=== PATIENT | female | born 1975 | race Caucasian/White ===

== ENCOUNTER 2016-11-07 21:49 | Emergency (ER) | payer SELFPAY ==
[2016-11-07 21:55] VITALS: BP 141/93; PULSE 75; TEMP 98.1; BMI 24.1
--- NOTE | 2016-11-07 22:53 | PDOC ---
History of Present Illness <Rufus Beck - Last Filed: 11/08/16 00:11> - General History Source: Patient Exam Limitations: No Limitations - History of Present Illness Initial Comments: 11/07/16 23:08 Patient is a 41 year old female with a significant past medical history of migraines who presents to the ED with complaints of left foot pain 1.5 hours before ED arrival. Patient reports hitting her left 5th digit toe on a folding table while at home with immediate pain on the 5th digit. She reports being unable to bear weight on left foot immediately after incident but was able to apply minor pressure after sometime. Patient denies taking any medication for pain after the initial accident/. Denies loss of consciousness. Denies fever, chills. Denies any other symptoms. Allergies: None Social history: No smoking. No alcohol. No illicit drugs. Surgical history: None PMD: None <Tawanda Quintana - Last Filed: 11/08/16 00:20> - General Chief Complaint: Injury Stated Complaint: FOOT INJURY Time Seen by Provider: 11/07/16 22:52 Past History - Family Disease History Family Disease History: Other: Sister (migraines) - Suicide/Smoking/Psychosocial Hx Smoking Status: No Smoking History: Never smoked Have you smoked in the past 12 months: No Number of Cigarettes Smoked Daily: 0 Information on smoking cessation initiated: No Hx Alcohol Use: No Drug/Substance Use Hx: No <Rufus Beck - Last Filed: 11/08/16 00:11> <Tawanda Quintana - Last Filed: 11/08/16 00:20> - Past Medical History Allergies/Adverse Reactions: Allergies Allergy/AdvReac Type Severity Reaction Status Date / Time No Known Allergies Allergy Verified 12/12/11 18:46 Home Medications: Ambulatory Orders Ondansetron [Zofran *Odt*] 8 mg SL TID #21 od.tablet 11/08/16 Oxycodone HCl/Acetaminophen [Percocet 5-325 mg Tablet] 1 - 2 tab PO Q4H #20 tablet MDD 6 11/08/16 Review of Systems - Review of Systems Able to Perform ROS?: Yes Comments:: 11/07/16 23:08 GENERAL/CONSTITUTIONAL: No fever or chills. No weakness. HEAD, EYES, EARS, NOSE AND THROAT: No change in vision. No ear pain or discharge. No sore throat. CARDIOVASCULAR: No chest pain or shortness of breath. RESPIRATORY: No cough, wheezing, or hemoptysis. GASTROINTESTINAL: No nausea, vomiting, diarrhea or constipation. GENITOURINARY: No dysuria, frequency, or change in urination. MUSCULOSKELETAL: +Left foot pain. No joint or muscle swelling. No neck or back pain. SKIN: No rash NEUROLOGIC: No headache, vertigo, loss of consciousness, or change in strength/ sensation. ENDOCRINE: No increased thirst. No abnormal weight change. HEMATOLOGIC/LYMPHATIC: No anemia, easy bleeding, or history of blood clots. ALLERGIC/IMMUNOLOGIC: No hives or skin allergy. All Other Systems: Reviewed and Negative <Tawanda Quintana - Last Filed: 11/08/16 00:20> *Physical Exam - Vital Signs Last Vital Signs Temp Pulse Resp BP Pulse Ox 98.1 F 75 19 141/93 97 11/07/16 21:53 11/07/16 21:53 11/07/16 21:53 11/07/16 21:53 11/07/16 21:53 <Rufus Beck - Last Filed: 11/08/16 00:11> - Vital Signs Last Vital Signs Temp Pulse Resp BP Pulse Ox 98.1 F 75 19 141/93 97 11/07/16 21:53 11/07/16 21:53 11/07/16 21:53 11/07/16 21:53 11/07/16 21:53 - Physical Exam Comments: 11/07/16 23:08 GENERAL: Awake, alert, and fully oriented, in no acute distress HEAD: No signs of trauma EYES: PERRLA, EOMI, sclera anicteric, conjunctiva clear ENT: Auricles normal inspection, hearing grossly normal, nares patent, oropharynx clear without exudates. Moist mucosa NECK: Normal ROM, supple, no lymphadenopathy, JVD, or masses LUNGS: Breath sounds equal, clear to auscultation bilaterally. No wheezes, and no crackles HEART: Regular rate and rhythm, normal S1 and S2, no murmurs, rubs or gallops ABDOMEN: Soft, nontender, normoactive bowel sounds. No guarding, no rebound. No masses EXTREMITIES: +Left little toe deformity. Normal range of motion, no edema. No clubbing or cyanosis. No cords, erythema, or tenderness NEUROLOGICAL: Cranial nerves II through XII grossly intact. Normal speech, SKIN: Warm, Dry, normal turgor, no rashes or lesions noted. <aMrianoTawanda - Last Filed: 11/08/16 00:20> Medical Decision Making - Medical Decision Making 11/08/16 00:20 X Ray results indicate fracture on left little toe. <MarianoTawanda - Last Filed: 11/08/16 00:20> *DC/Admit/Observation/Transfer - Discharge Dispostion Admit: No - Attestations Physician Attestion: 11/07/16 22:53 I, Dr. Rufus Beck, attest that this document has been prepared under my direction and personally reviewed by me in its entirety. I further attest, that it accurately reflects all work, treatment, procedures and medical decision -making performed by me. <Rufus Beck - Last Filed: 11/08/16 00:11> - Attestations Scribe Attestion: 11/07/16 23:08 Documentation prepared by Tawanda Quintana, acting as medical laboratory manager for Rufus Beck MD/DO. <MarianoTawanda - Last Filed: 11/08/16 00:20> Diagnosis at time of Disposition: Fracture, phalanx, foot Qualifiers: Encounter type: initial encounter Toe: lesser toe Fracture type: closed Phalanx : middle Fracture alignment: displaced Laterality: left Qualified Code(s): S92.522A - Displaced fracture of medial phalanx of left lesser toe(s), initial encounter for closed fracture - Discharge Dispostion Disposition: HOME - Prescriptions Prescriptions: Oxycodone HCl/Acetaminophen [Percocet 5-325 mg Tablet] 1 - 2 tab PO Q4H #20 tablet MDD 6 Ondansetron [Zofran *Odt*] 8 mg SL TID #21 od.tablet - Referrals Referrals: Callum Nash MD [Staff Physician] - - Patient Instructions Printed Discharge Instructions: DI for Toe Fracture Additional Instructions: Wear the wooden shoe until you do not need it any more. Percocet is for pain, Zofran is for upset stomach from the pain medicine
[2016-11-07] MEDS ORDERED: ONDANSETRON *ODT* 4 MG TABLET SL ONE (22:56)
[2016-11-07] MEDS ORDERED: ONDANSETRON *ODT* 4 MG TABLET ONE (23:07)
== END 2016-11-08 00:42 | disposition home or self-care (01) ==
LOC: JERFT 21:49 → JER 21:49
DX: S92.522A Displaced fracture of middle phalanx of left lesser toe(s), initial encounter for closed fracture (principal); W22.03XA Walked into furniture, initial encounter; Y93.89 Activity, other specified; Y92.038 Other place in apartment as the place of occurrence of the external cause
CPT/HCPCS: 73630-TC-LT; 99281-25

== ENCOUNTER 2017-09-18 01:38 | Emergency (ER) | payer OTHER ==
[2017-09-18 02:23] VITALS: BP 123/80; PULSE 70; TEMP 97.9; BMI 24.5
--- NOTE | 2017-09-18 02:37 | PDOC ---
History of Present Illness - General History Source: Patient - History of Present Illness Initial Comments: 09/18/17 04:14 42-year-old female complaining of laceration to the right side of forehead reports that she slipped and fell and hit her head while getting out of the tub. Denies LOC, nausea, vomiting, dizziness. Patient reports that she has been having migraines for the last 6 days currently on Excedrin Migraine. Patient reports headache worsen after the head injury. <Mercy Mondragon - Last Filed: 09/18/17 04:14> <Karlie Boyer - Last Filed: 09/18/17 14:10> - General Chief Complaint: Injury Stated Complaint: FALL/HEAD INJURY Time Seen by Provider: 09/18/17 02:27 Past History - Family Disease History Family Disease History: Other: Sister (migraines) - Suicide/Smoking/Psychosocial Hx Smoking Status: No Smoking History: Never smoked Have you smoked in the past 12 months: No Number of Cigarettes Smoked Daily: 0 Information on smoking cessation initiated: No Hx Alcohol Use: No Drug/Substance Use Hx: No <Mercy Mondragon - Last Filed: 09/18/17 04:14> <Karlie Boyer - Last Filed: 09/18/17 14:10> - Past Medical History Allergies/Adverse Reactions: Allergies Allergy/AdvReac Type Severity Reaction Status Date / Time No Known Allergies Allergy Verified 09/18/17 02:22 Home Medications: Ambulatory Orders Ondansetron [Zofran *Odt*] 8 mg SL TID #21 od.tablet 11/08/16 Oxycodone HCl/Acetaminophen [Percocet 5-325 mg Tablet] 1 - 2 tab PO Q4H #20 tablet MDD 6 11/08/16 Review of Systems - Review of Systems Able to Perform ROS?: Yes Is the patient limited Maltese proficient: No Constitutional: No: Symptoms Reported, See HPI, Chills, Diaphoresis, Fever, Loss of Appetite, Malaise, Night Sweats, Weakness, Weight Stable, Unintentional Wgt. Loss, Unexplained wgt Loss, Other Integumentary: Yes: Other Neurological: Yes: Headache. No: Symptoms reported, See HPI, Numbness, Paresthesia, Pre-Existing Deficit, Seizure, Tingling, Tremors, Weakness, Unsteady Gait, Ataxia, Dizziness, Other <Mercy Mondragon - Last Filed: 09/18/17 04:14> *Physical Exam - Vital Signs Last Vital Signs Temp Pulse Resp BP Pulse Ox 97.9 F 70 20 123/80 100 09/18/17 01:45 09/18/17 01:45 09/18/17 01:45 09/18/17 01:45 09/18/17 01:45 - Physical Exam General Appearance: Yes: Appropriately Dressed (laceration) HEENT: positive: Other (approximately a 2.5 cm linear vertical rash to right side of forehead) Neurologic: positive: quality assurance specialist II-XII NML intact, Fully Oriented, Alert, Normal Mood/ Affect <Mercy Mondragon - Last Filed: 09/18/17 04:14> - Vital Signs Last Vital Signs Temp Pulse Resp BP Pulse Ox 97.9 F 70 20 123/80 100 09/18/17 01:45 09/18/17 01:45 09/18/17 01:45 09/18/17 01:45 09/18/17 01:45 <Karlie Boyer - Last Filed: 09/18/17 14:10> Procedures - Laceration/Wound Repair Right Anterior Face Wound Length: 2.6 to 5.0 cm Wound Explored: clean Wound's Depth, Shape: superficial Irrigated w/ Saline: Yes Anesthesia: 1% Lidocaine Wound Debrided: minimal Wound Repaired With: Sutures Suture Size/Type: 6:0 Number of Sutures: 5 Layer Closure: Yes <Karlie Boyer - Last Filed: 09/18/17 14:10> ED Treatment Course - LABORATORY CBC & Chemistry Diagram: 09/18/17 03:00 09/18/17 03:00 <Mercy Mondragon - Last Filed: 09/18/17 04:14> - LABORATORY CBC & Chemistry Diagram: 09/18/17 03:00 09/18/17 03:00 - ADDITIONAL ORDERS Additional order review: Laboratory Results 09/18/17 09/18/17 03:00 03:00 Sodium 142 Potassium 4.1 Chloride 104 Carbon Dioxide 33 H Anion Gap 5 L BUN 16 Creatinine 0.6 Creat Clearance w eGFR > 60 Random Glucose 97 Calcium 8.9 Serum , Qual Negative 09/18/17 03:00 RBC 4.20 MCV 84.4 MCHC 32.9 RDW 14.1 MPV 8.6 Neutrophils % 59.0 Lymphocytes % 31.2 Monocytes % 6.2 Eosinophils % 3.2 Basophils % 0.4 - Medications Given in the ED: ED Medications Discontinued Medications Generic Name Dose Route Start Last Admin Trade Name Mike PRN Reason Stop Dose Admin Diphenhydramine HCl 25 mg 09/18/17 02:38 09/18/17 03:16 Benadryl Injection - IVPB 09/18/17 02:39 25 mg ONCE ONE Administration Metoclopramide HCl 10 mg 09/18/17 02:38 09/18/17 03:17 Reglan Injection - IVPB 09/18/17 02:39 10 mg ONCE ONE Administration Sodium Chloride 1,000 ml 09/18/17 02:38 09/18/17 03:17 Normal Saline - IV 09/18/17 02:39 1,000 ml ONCE ONE Administration Tetanus/Diphtheria Toxoids Adsorbed 0.5 ml 09/18/17 02:38 09/18/17 03:16 Decavac IM 09/18/17 02:39 0.5 ml .ONCE ONE Administration <Karlie Boyer - Last Filed: 09/18/17 14:10> *DC/Admit/Observation/Transfer <Mercy Mondragon - Last Filed: 09/18/17 04:14> <Karlie Boyer - Last Filed: 09/18/17 14:10> Diagnosis at time of Disposition: Forehead laceration Qualifiers: Encounter type: initial encounter Qualified Code(s): S01.81XA - Laceration without foreign body of other part of head, initial encounter Head trauma Qualifiers: Encounter type: initial encounter Qualified Code(s): S09.90XA - Unspecified injury of head, initial encounter Migraine headache with aura Qualifiers: Status migrainosus presence: without status migrainosus Intractability: not intractable Qualified Code(s): G43.109 - Migraine with aura, not intractable, without status migrainosus - Discharge Dispostion Disposition: HOME - Referrals Referrals: Giancarlo Cyr MD, MD [Primary Care Provider] - - Patient Instructions Printed Discharge Instructions: Laceration Repair, DI for Closed Head Injury Additional Instructions: Drink plenty of fluids. rest and reax as much as possible. Follow-up with the neurologist as soon as possible. Take ibuprofen every 6 hours as needed for pain return to the emergency room in 5-7 days for your sutures to be removed keep wound clean and dry. - Post Discharge Activity Forms/Work/School Notes: Back to Work
[2017-09-18] MEDS ORDERED: TETANUS AND DIPHTHERIA TOXOID 0.5 ML DISP.SYRIN IM ONE (02:38)
[2017-09-18] MEDS ORDERED: METOCLOPRAMIDE HCL INJECTION 10 MG/2 ML VIAL IVPB ONE (02:38)
[2017-09-18] MEDS ORDERED: SODIUM CHLORIDE 0.9% 500 ML INFUS.BAG IV ONE (02:38)
[2017-09-18] MEDS ORDERED: METOCLOPRAMIDE HCL INJECTION 10 MG/2 ML VIAL ONE (03:04)
[2017-09-18 03:16] LABS: BASO % 0.4 % (0-2.0); EOS % 3.2 % (0-4.5); HEMATOCRIT 35.4 % (32.4-45.2); HEMOGLOBIN 11.7 GM/dL (10.7-15.3); LYMPH % 31.2 % (8-40); MCH 27.8 pg (25.7-33.7); MCHC 32.9 g/dl (32.0-36.0); MEAN CELL VOLUME 84.4 fl (80-96); MEAN PLT VOLUME 8.6 fl (7.5-11.1); MONO % 6.2 % (3.8-10.2); PLATELET COUNT 263 K/MM3 (134-434); RDW 14.1 % (11.6-15.6); WHITE BLOOD COUNT 7.9 K/mm3 (4.0-10.0)
[2017-09-18 03:32] LABS: ANION GAP 5 (8-16); BLOOD UREA NITROGEN 16 mg/dL (7-18); CALCIUM 8.9 mg/dL (8.5-10.1); CHLORIDE 104 mmol/L (98-107); CO2 33 mmol/L (21-32); CREATININE 0.6 mg/dL (0.55-1.02); GLUCOSE,RANDOM 97 mg/dL (74-106); POTASSIUM 4.1 mmol/L (3.5-5.1); SODIUM 142 mmol/L (136-145)
--- NOTE | 2017-09-18 03:37 | PDOC ---
*Physical Exam - Vital Signs Last Vital Signs Temp Pulse Resp BP Pulse Ox 97.9 F 70 20 123/80 100 09/18/17 01:45 09/18/17 01:45 09/18/17 01:45 09/18/17 01:45 09/18/17 01:45 ED Treatment Course - LABORATORY CBC & Chemistry Diagram: 09/18/17 03:00 09/18/17 03:00 - ADDITIONAL ORDERS Additional order review: 09/18/17 03:00 RBC 4.20 MCV 84.4 MCHC 32.9 RDW 14.1 MPV 8.6 Neutrophils % 59.0 Lymphocytes % 31.2 Monocytes % 6.2 Eosinophils % 3.2 Basophils % 0.4 - Medications Given in the ED: ED Medications Discontinued Medications Generic Name Dose Route Start Last Admin Trade Name Mike PRN Reason Stop Dose Admin Diphenhydramine HCl 25 mg 09/18/17 02:38 09/18/17 03:16 Benadryl Injection - IVPB 09/18/17 02:39 25 mg ONCE ONE Administration Metoclopramide HCl 10 mg 09/18/17 02:38 09/18/17 03:17 Reglan Injection - IVPB 09/18/17 02:39 10 mg ONCE ONE Administration Sodium Chloride 1,000 ml 09/18/17 02:38 09/18/17 03:17 Normal Saline - IV 09/18/17 02:39 1,000 ml ONCE ONE Administration Tetanus/Diphtheria Toxoids Adsorbed 0.5 ml 09/18/17 02:38 09/18/17 03:16 Decavac IM 09/18/17 02:39 0.5 ml .ONCE ONE Administration Medical Decision Making - Medical Decision Making 09/18/17 03:37 agree with care from AMILCAR Mondragon *DC/Admit/Observation/Transfer Diagnosis at time of Disposition: Forehead laceration, Head trauma, Migraine headache with aura - Discharge Dispostion Disposition: HOME - Referrals Referrals: Giancarlo Cyr MD, [Primary Care Provider] - - Patient Instructions Printed Discharge Instructions: Laceration Repair, DI for Closed Head Injury Additional Instructions: Drink plenty of fluids. rest and reax as much as possible. Follow-up with the neurologist as soon as possible. Take ibuprofen every 6 hours as needed for pain return to the emergency room in 5-7 days for your sutures to be removed keep wound clean and dry. - Post Discharge Activity Forms/Work/School Notes: Back to Work
== END 2017-09-18 04:54 | disposition home or self-care (01) ==
LOC: JER 01:38
PROC: 0HQ1XZZ Repair Face Skin, External Approach (ICD-10-PCS; principal; 2017-09-18)
DX: S01.81XA Laceration without foreign body of other part of head, initial encounter (principal); W18.2XXA Fall in (into) shower or empty bathtub, initial encounter; Y93.89 Activity, other specified; Y92.002 Bathroom of unspecified non-institutional (private) residence as the place of occurrence of the external cause
CPT/HCPCS: 36415; 80048; 84703; 85025; 99283-25

== ENCOUNTER 2019-11-16 11:05 | Emergency (ER) | payer OTHER ==
[2019-11-16 11:10] VITALS: BP 125/82; PULSE 74; TEMP 98.7; BMI 26.2
[2019-11-16] MEDS ORDERED: ACETAMINOPHEN 1000 MG/100 ML VIAL (NON FORMULARY) IVPB ONE (11:31)
[2019-11-16] MEDS ORDERED: diazePAM 5 MG TABLET PO ONE (11:31)
[2019-11-16] MEDS ORDERED: diazePAM 5 MG TABLET ONE (11:35)
[2019-11-16] MEDS ORDERED: ACETAMINOPHEN INJECTION 100 ML IVPB ONE (11:41)
--- NOTE | 2019-11-16 12:54 | PDOC ---
History of Present Illness - General Chief Complaint: Back Pain Stated Complaint: RT LEG/BACK PAIN Time Seen by Provider: 11/16/19 11:23 - History of Present Illness Initial Comments: 11/16/19 12:51 44-year-old female denies comorbidities history of bilateral tubal ligation denies chance of presents for lower back pain x2 days with posterior lateral right leg radicular symptoms. No systemic symptoms no loss of bowel bladder function or saddle paresthesias she took 3 Aleve this morning with minimal help Past History - Medical History Allergies/Adverse Reactions: Allergies Allergy/AdvReac Type Severity Reaction Status Date / Time No Known Allergies Allergy Verified 11/16/19 11:07 Home Medications: Ambulatory Orders Cyclobenzaprine HCl [Flexeril 10 mg] 10 mg PO HS PRN #10 tablet 11/16/19 Methylprednisolone [Medrol Dose Claudio] 4 mg PO ASDIR #21 tablet 11/16/19 COPD: No - Reproductive History Is Patient Now?: No - Immunization History Immunization Up to Date: No - Psycho-Social/Smoking History Smoking Status: No Smoking History: Never smoked Have you smoked in the past 12 months: No Number of Cigarettes Smoked Daily: 0 - Substance Abuse Hx (Audit-C & DAST Scrn) How often the patient has a drink containing alcohol: Never Score: In Men: 4 or > Positive; In Women: 3 or > Positive: 0 Screen Result (Pos requires Nsg. Audit-10AR): Negative In the last yr the pt used illegal drug/Rx for NonMed reason: No Score: Yes response is considered Positive: 0 Screen Result (Positive result requires Nsg. DAST-10): Negative Review of Systems - Review of Systems Constitutional: No: Fever Musculoskeletal: Yes: Back Pain Neurological: Yes: See HPI. No: Paresthesia, Tingling, Weakness *Physical Exam - Vital Signs Last Vital Signs Temp Pulse Resp BP Pulse Ox 98.7 F 74 20 125/82 99 11/16/19 11:08 11/16/19 11:08 11/16/19 11:08 11/16/19 11:08 11/16/19 11:08 - Physical Exam 11/16/19 12:52 Lumbar spine skin color temperature normal range of motion is slightly decreased. No midline tenderness. Moderate bilateral paralumbar musculature spasm and tenderness 5 out of 5 strength bilateral lower extremities without gross sensorimotor deficits thighs and calves are soft and nontender neurovascular intact ED Treatment Course - RADIOLOGY Radiology Studies Ordered: Category Date Time Status SPINE-LUMBAR ONLY [RAD] Stat Radiology 11/16/19 12:19 Taken - Medications Given in the ED: ED Medications Discontinued Medications Generic Name Dose Route Start Last Admin Trade Name Freq PRN Reason Stop Dose Admin Acetaminophen 1,000 mg 11/16/19 11:31 11/16/19 11:37 Ofirmev Injection - IVPB 11/16/19 11:32 1,000 mg ONCE ONE Administration Diazepam 5 mg 11/16/19 11:31 11/16/19 11:37 Valium - PO 11/16/19 11:32 5 mg ONCE ONE Administration Medical Decision Making - Medical Decision Making 11/16/19 12:52 Minimal relief with Valium and IV Tylenol Medrol Dosepak and Flexeril at home follow-up with neurosurgery I have reviewed the pathophysiology with the patient. They are in agreement with the treatment plan all questions were answered to their satisfaction. Understanding for follow-up without fail was also conveyed to the patient. Again they are in agreement. Patient requested x-rays which I did normal lumbar spine lordotic curve normal disc spaces no destructive process she then requested a ultrasound of her kidneys she has no urinary symptoms I do not see the need for an emergent ultrasound I will have patient follow-up with neurosurgery She is in agreement Discharge - Discharge Information Problems reviewed: Yes Clinical Impression/Diagnosis: Lumbar radiculopathy Condition: Stable Disposition: HOME - Admission No - Additional Discharge Information Prescriptions: Cyclobenzaprine HCl [Flexeril 10 mg] 10 mg PO HS PRN #10 tablet PRN Reason: Muscle Spasms Methylprednisolone [Medrol Dose Claudio] 4 mg PO ASDIR #21 tablet - Follow up/Referral Referrals: Ko Finn MD, FAANS [Staff Physician] - - Patient Discharge Instructions Additional Instructions: Please start the Medrol Dosepak as and take it as directed. Return to the emergency room for worsening symptoms at any time. Flexeril is 1 tablet before bedtime will make you sleepy. Do not take any anti-inflammatories such as Advil Motrin Aleve or ibuprofen while on the Medrol Dosepak. You may take [id number] Tylenol starting this evening after 6 PM you were given a dose of Tylenol in the emergency room. Return to the emergency room for worsening symptoms at any time and without fail follow-up with neurosurgery in 1 to 2 days for further evaluation and treatment options. - Post Discharge Activity
== END 2019-11-16 13:04 | disposition home or self-care (01) ==
LOC: JERFT 11:05
PROC: 3E0333Z Introduction of Anti-inflammatory into Peripheral Vein, Percutaneous Approach (ICD-10-PCS; principal; 2019-11-16)
DX: M54.16 Radiculopathy, lumbar region (principal)
CPT/HCPCS: 72100-TC-FY; 99284-25; J0131

== ENCOUNTER 2021-02-14 11:09 | Emergency (ER) | payer OTHER ==
[2021-02-14 12:01] VITALS: BP 123/57; PULSE 78; TEMP 98; BMI 25.8
[2021-02-14] MEDS ORDERED: IBUPROFEN 400 MG TABLET (FP) PO ONE ×2 (13:11→13:18)
== END 2021-02-14 13:58 | disposition home or self-care (01) ==
LOC: JERFT 11:09
DX: S16.1XXA Strain of muscle, fascia and tendon at neck level, initial encounter (principal); S39.012A Strain of muscle, fascia and tendon of lower back, initial encounter; V49.40XA Driver injured in collision with unspecified motor vehicles in traffic accident, initial encounter
CPT/HCPCS: 99283-25

== ENCOUNTER 2021-04-15 17:01 | Emergency (ER) | payer OTHER ==
[2021-04-15 17:08] VITALS: PULSE 79; TEMP 97.8; BMI 25.8
[2021-04-15 17:09] VITALS: BP 124/80
[2021-04-15] MEDS ORDERED: KETOROLAC TROMETHAMINE 30 MG/1 ML VIAL IM ONE (18:13)
[2021-04-15] MEDS ORDERED: diazePAM 5 MG TABLET PO ONE (18:13)
[2021-04-15] MEDS ORDERED: KETOROLAC TROMETHAMINE 30 MG/1 ML VIAL ONE (18:15)
[2021-04-15] MEDS ORDERED: diazePAM 5 MG TABLET ONE (18:19)
== END 2021-04-15 20:00 | disposition home or self-care (01) ==
LOC: JERFT 17:01
PROC: 3E023GC Introduction of Other Therapeutic Substance into Muscle, Percutaneous Approach (ICD-10-PCS; principal; 2021-04-15)
DX: M54.16 Radiculopathy, lumbar region (principal)
CPT/HCPCS: 72100-TC-FY; 99284-25

== ENCOUNTER 2021-07-28 15:38 | Inpatient (IN) | payer OTHER ==
[2021-07-28 15:59] VITALS: BMI 25.8
[2021-07-28] MEDS ORDERED: SODIUM CHLORIDE 1,000 ML IV STA (17:46)
[2021-07-28] MEDS ORDERED: morphine CARPU-JECT 4 MG/1 ML DISP.SYRIN IVPUSH ONE (17:46)
[2021-07-28] MEDS ORDERED: ONDANSETRON 4 MG/2 ML VIAL IVPUSH ONE (17:46)
[2021-07-28] MEDS ORDERED: ONDANSETRON 4 MG/2 ML VIAL ONE (19:27)
[2021-07-28] MEDS ORDERED: morphine SULFATE 4 MG/ML VIAL ONE (19:27)
[2021-07-28 19:38] LABS: BASO % 0.6 % (0-2.0); EOS % 0.4 % (0-4.5); HEMATOCRIT 38.8 % (32.4-45.2); HEMOGLOBIN 12.7 GM/dL (10.7-15.3); LYMPH % 18.6 % (8-40); MCH 26.8 pg (25.7-33.7); MCHC 32.9 g/dl (32.0-36.0); MEAN CELL VOLUME 81.5 fl (80-96); MEAN PLT VOLUME 8.2 fl (7.5-11.1); MONO % 3.2 % (3.8-10.2); NEUT % 77.2 % (42.8-82.8); PLATELET COUNT 342 10^3/uL (134-434); RBC 4.76 M/mm3 (3.60-5.2); RDW 15.2 % (11.6-15.6); WHITE BLOOD COUNT 12.6 K/mm3 (4.0-10.0)
[2021-07-28 19:58] LABS: CHLORIDE 104 mmol/L (98-107); SODIUM 138 mmol/L (136-145)
[2021-07-28 20:00] LABS: ALBUMIN 3.9 g/dl (3.4-5.0); ANION GAP 5 MMOL/L (8-16); CALCIUM 9.3 mg/dL (8.5-10.1); CO2 29 mmol/L (21-32); GLUCOSE,RANDOM 95 mg/dL (74-106); LIPASE 81 U/L (73-393)
[2021-07-28 20:01] LABS: BLOOD UREA NITROGEN 10.2 mg/dL (7-18)
[2021-07-28 20:03] LABS: CREATININE 0.6 mg/dL (0.55-1.3); SGOT/AST 17 U/L (15-37); SGPT/ALT 38 U/L (13-61)
[2021-07-28 20:05] LABS: BILIRUBIN,TOTAL 0.4 mg/dL (0.2-1); TOT PROT 7.9 g/dl (6.4-8.2)
[2021-07-28 20:06] LABS: ALK PHOS 86 U/L (45-117)
[2021-07-28 20:17] LABS: EPI CELLS 5 /uL (0-25.1); HYALINE CASTS 0 /uL (0-3.1); PH,URINE 6.5 (5.0-8.0); URINE APPEARANCE CLEAR; URINE BACTERIA 6 /uL (0-1359); URINE BILIRUBIN NEGATIVE (NEGATIVE); URINE COLOR YELLOW; URINE GLUCOSE (UA) NEGATIVE (NEGATIVE); URINE KETONE NEGATIVE (NEGATIVE); URINE LEUK ESTERASE NEGATIVE (NEGATIVE); URINE NITRITE NEGATIVE (NEGATIVE); URINE PROTEIN NEGATIVE (NEGATIVE); URINE RBC 147 /uL (0-23.9); URINE UROBILINOGEN 0.2 mg/dL (0.2-1.0); URINE WBC 6 /uL (0-25.8)
[2021-07-29] MEDS ORDERED: KETOROLAC TROMETHAMINE 15 MG/ML VIAL IVPUSH ONE (01:30)
[2021-07-29] MEDS ORDERED: KETOROLAC TROMETHAMINE 15 MG/ML VIAL ONE (03:03)
[2021-07-29] MEDS ORDERED: ACETAMINOPHEN 500 MG TABLET (FP) PO PRN (03:34)
[2021-07-29 08:41] VITALS: BP 110/67; PULSE 61; TEMP 98.7
[2021-07-29] MEDS: POLYETHYLENE GLYCOL (HEALTHYLAX) 3350 17 GM PACKET PO SCH ×2 (09:59→14:30)
[2021-07-29] MEDS ORDERED: ENOXAPARIN NA (PORCINE) 40 MG/0.4 ML DISP.SYRIN SQ SCH (10:00)
[2021-07-29 12:26] LABS: BASO % 0.4 % (0-2.0); EOS % 1.5 % (0-4.5); HEMATOCRIT 36.8 % (32.4-45.2); LYMPH % 35.4 % (8-40); MCH 26.8 pg (25.7-33.7); MCHC 32.6 g/dl (32.0-36.0); MEAN CELL VOLUME 82.3 fl (80-96); MEAN PLT VOLUME 8.4 fl (7.5-11.1); NEUT % 57.7 % (42.8-82.8); PLATELET COUNT 324 10^3/uL (134-434); RBC 4.48 M/mm3 (3.60-5.2); RDW 15.5 % (11.6-15.6)
[2021-07-29 12:56] LABS: CALCIUM 8.3 mg/dL (8.5-10.1)
[2021-07-29 12:57] LABS: BLOOD UREA NITROGEN 9.2 mg/dL (7-18); MAGNESIUM 2.5 mg/dL (1.8-2.4)
[2021-07-29 13:00] LABS: CREATININE 0.6 mg/dL (0.55-1.3); PHOSPHOROUS 2.8 mg/dL (2.5-4.9)
[2021-07-29 13:01] LABS: BILIRUBIN,TOTAL 0.5 mg/dL (0.2-1); TOT PROT 6.7 g/dl (6.4-8.2)
[2021-07-29 13:06] LABS: ALBUMIN 3.2 g/dl (3.4-5.0)
[2021-07-29] MEDS ORDERED: SENNOSIDES 8.6MG TABLET (FP) PO SCH (22:00)
== END 2021-07-29 15:40 | disposition home or self-care (01) | DRG 251 ==
LOC: JER 15:38 → JERBED 07-29 01:32 → OBSVTOIN 07-29 03:24 → J5S 07-29 06:45
PROVIDERS: ADMIT Internal Medicine; ATTEND Internal Medicine
DX: R10.31 Right lower quadrant pain (principal); I48.91 Unspecified atrial fibrillation; R00.0 Tachycardia, unspecified; R11.2 Nausea with vomiting, unspecified; R31.29 Other microscopic hematuria; R51.9 Headache, unspecified; R25.2 Cramp and spasm; K59.00 Constipation, unspecified; D72.829 Elevated white blood cell count, unspecified; I45.9 Conduction disorder, unspecified; D25.9 Leiomyoma of uterus, unspecified; I49.5 Sick sinus syndrome; I44.0 Atrioventricular block, first degree; N88.8 Other specified noninflammatory disorders of cervix uteri
CPT/HCPCS: 0241U-QW; 36415; 74176-TC; 76830-TC; 80053; 81003; 83690; 83735; 84100; 84702; 85025; 87077; 87086; 87491; 87591; 93005; 93010; 99285-25; G0378

== ENCOUNTER 2022-10-23 13:03 | Emergency (ER) | payer OTHER ==
[2022-10-23 13:15] VITALS: BP 120/78; PULSE 78; RESP 17; TEMP 97.8; BMI 27.6
[2022-10-23] MEDS ORDERED: ONDANSETRON 4 MG/2 ML VIAL IVPUSH ONE (13:21)
[2022-10-23] MEDS ORDERED: SODIUM CHLORIDE 0.9% 500 ML INFUS.BAG IV ONE (13:21)
[2022-10-23] MEDS ORDERED: ONDANSETRON 4 MG/2 ML VIAL ONE (13:48)
[2022-10-23 14:08] LABS: BASO % 0.4 % (0-2.0); EOS % 0.2 % (0-4.5); HEMATOCRIT 39.9 % (32.4-45.2); HEMOGLOBIN 13.4 GM/dL (10.7-15.3); LYMPH % 21.9 % (8-40); MCHC 33.5 g/dl (32.0-36.0); MEAN CELL VOLUME 80.5 fl (80-96); MEAN PLT VOLUME 8.4 fl (7.5-11.1); NEUT % 73.5 % (42.8-82.8); PLATELET COUNT 353 10^3/uL (134-434); RBC 4.96 M/mm3 (3.60-5.2); RDW 14.9 % (11.6-15.6); URINE APPEARANCE CLEAR; URINE BILIRUBIN NEGATIVE (NEGATIVE); URINE COLOR YELLOW; URINE GLUCOSE (UA) NEGATIVE (NEGATIVE); URINE KETONE NEGATIVE (NEGATIVE); URINE LEUK ESTERASE NEGATIVE (NEGATIVE); URINE NITRITE NEGATIVE (NEGATIVE); URINE PROTEIN NEGATIVE (NEGATIVE); URINE UROBILINOGEN 0.2 mg/dL (0.2-1.0); WHITE BLOOD COUNT 9.9 K/mm3 (4.0-10.0)
[2022-10-23 15:23] LABS: CALCIUM 8.8 mg/dL (8.5-10.1)
[2022-10-23 15:25] LABS: ALBUMIN 3.7 g/dl (3.4-5.0)
[2022-10-23 15:28] LABS: BILIRUBIN,TOTAL 0.3 mg/dL (0.2-1); CREATININE 0.6 mg/dL (0.55-1.3); TOT PROT 7.8 g/dl (6.4-8.2)
[2022-10-23] MEDS ORDERED: ACETAMINOPHEN 325 MG TABLET (FP) PO ONE (15:41)
[2022-10-23] MEDS ORDERED: ACETAMINOPHEN 325 MG TABLET (FP) ONE (15:51)
== END 2022-10-23 16:03 | disposition home or self-care (01) ==
LOC: JER 13:03
PROC: 3E033GC Introduction of Other Therapeutic Substance into Peripheral Vein, Percutaneous Approach (ICD-10-PCS; principal; 2022-10-23)
DX: R11.2 Nausea with vomiting, unspecified (principal); R42 Dizziness and giddiness; R68.83 Chills (without fever); R43.0 Anosmia; Z20.822 Contact with and (suspected) exposure to COVID-19
CPT/HCPCS: 0241U-QW; 36415; 80053; 81003; 83690; 84703; 85025; 87086; 99284-25

== ENCOUNTER 2023-02-14 23:49 | Emergency (ER) | payer OTHER ==
[2023-02-14 23:54] VITALS: BP 119/74; PULSE 73; RESP 18; TEMP 97.7; BMI 28.7
[2023-02-15] MEDS ORDERED: ALBUTEROL SO4 2.5/IPRATROPIUM 0.5 INH SOL 3 ML VIAL.NEB. NEB ONE ×2 (00:53→01:00)
[2023-02-15] MEDS ORDERED: IBUPROFEN 600 MG TABLET (FP) PO ONE ×2 (00:53→00:59)
[2023-02-15] MEDS ORDERED: guaiFENesin 200 MG/10 ML 10 ML UNIT-DOSE CUPS PO ONE (00:55)
[2023-02-15] MEDS ORDERED: guaiFENesin/CODEINE 5 ML UNIT-DOSE CUPS PO ONE (00:59)
== END 2023-02-15 01:54 | disposition home or self-care (01) ==
LOC: JER 23:49
PROC: 3E0F7GC Introduction of Other Therapeutic Substance into Respiratory Tract, Via Natural or Artificial Opening (ICD-10-PCS; principal; 2023-02-15)
DX: R50.9 Fever, unspecified (principal); R09.81 Nasal congestion; R05.9 Cough, unspecified; J06.9 Acute upper respiratory infection, unspecified; J11.1 Influenza due to unidentified influenza virus with other respiratory manifestations; Z20.822 Contact with and (suspected) exposure to COVID-19
CPT/HCPCS: 0241U-QW; 71046-TC-FY; 93005; 93010; 99285-25